=== PATIENT | female | born 1955 | race Caucasian/White ===

== ENCOUNTER → 2019-10-22 12:30 | Outpatient (CLI) | payer MEDICARE ==
[2011-01-16 15:41] VITALS: BMI 39.3
[2019-10-22 12:59] LABS: HEMATOCRIT 35.1 % (36.0-48.0); MCH 24.2 pg (26.0-34.0); MCHC 31.3 g/dL (31.0-37.0); MCV 77.3 fL (80.0-100.0); MEAN PLATELET VOLUME 11.9 fL (7.4-10.4); PLATELET COUNT 264 10x3/uL (130-400); RBC 4.54 10x6/uL (4.00-5.40); RDW 16.4 % (11.5-14.5); WBC 5.5 10x3/uL (4.8-10.8)
[2019-10-22 14:57] LABS: EOSINOPHILS 1 % (0-7); LYMPHOCYTES 29 % (15-50); MONOCYTES 1 % (2-11); NEUTROPHILS 69 % (40-80); PLATELET ESTIMATE NORMAL
== END | disposition home or self-care (01) ==
LOC: D.LABREF 12:30
PROVIDERS: ATTEND Legal Medicine
DX: D47.2 Monoclonal gammopathy (principal)